=== PATIENT | female | born 2000 | race Caucasian/White ===

== ENCOUNTER 2022-03-06 09:56 | Emergency (ER) | payer OTHER ==
[~2022-03-06] VITALS: Ht 175.3 cm; Wt 63.5 kg
[2022-03-06 10:06] VITALS: BP_SYST 111
--- NOTE | 2022-03-06 10:30 | NUR ---
Pt brought by self, A&Ox4, pt presents to ER with headache and nausea after she fell downhill couple days ago, skin pink and warm, cap refill <3, VSS
--- NOTE | 2022-03-06 10:40 | NUR ---
Dr Moore evaluating patient at bedside
[2022-03-06 12:34] VITALS: BP_SYST 111
--- NOTE | 2022-03-06 12:37 | NUR ---
Patient given written and verbal discharge instructions and verbalizes understanding. ER MD discussed with patient the results and treatment provided. Patient in stable condition. ID arm band removed. No Rx given. Patient educated on pain management and to follow up with PMD. Pain Scale 0/10.
== END 2022-03-06 12:34 | disposition home or self-care (01) ==
LOC: SED 09:56
DX: S09.90XA Unspecified injury of head, initial encounter (principal); R11.10 Vomiting, unspecified; Z88.1 Allergy status to other antibiotic agents; Z88.8 Allergy status to other drugs, medicaments and biological substances; Z79.899 Other long term (current) drug therapy; W01.198A Fall on same level from slipping, tripping and stumbling with subsequent striking against other object, initial encounter; Y93.89 Activity, other specified; Y92.89 Other specified places as the place of occurrence of the external cause; Y99.8 Other external cause status
CPT/HCPCS: 70450-TC; 76376; 81025; 99284